=== PATIENT | male | born 1990 | race African-American/Black ===

== ENCOUNTER 2017-08-17 10:14 | Emergency (ER) | payer SELFPAY ==
[~2017-08-17] VITALS: Ht 177.8 cm; Wt 73.0 kg
[2017-08-17 11:00] VITALS: BP 100/72
[2017-08-17] MEDS ORDERED: HYDROCODONE/ACETAMINOPHEN 5/325MG TABLET PO ONE (11:00)
== END 2017-08-17 15:25 | disposition home or self-care (01) ==
LOC: ER 10:14
DX: S92.422A Displaced fracture of distal phalanx of left great toe, initial encounter for closed fracture (principal); W23.0XXA Caught, crushed, jammed, or pinched between moving objects, initial encounter; J45.909 Unspecified asthma, uncomplicated; Y93.89 Activity, other specified; Y92.89 Other specified places as the place of occurrence of the external cause; Y99.8 Other external cause status
CPT/HCPCS: 73660; 99284; Z7610; 29515; 99283